=== PATIENT | male | born 1980 | race Caucasian/White ===

== ENCOUNTER → 2016-09-15 | Outpatient (REF) | payer OTHER ==
[2016-09-15 12:18] LABS: ALBUMIN/GLOBULIN RATIO 1.25 (1.00-1.93); ALKALINE PHOSPHATASE 85 U/L (45-117); ALT/SGPT 18 U/L (12-78); ANION GAP 9 MEQ/L (8-16); AST/SGOT 11 U/L (15-37); BILIRUBIN,TOTAL 0.6 MG/DL (0.2-1.0); BLOOD UREA NITROGEN 14 MG/DL (7-18); CARBON DIOXIDE LEVEL 29 MEQ/L (21-32); CHLORIDE LEVEL 105 MEQ/L (98-107); CHOLESTEROL LEVEL 183 MG/DL (<200); CREATININE FOR GFR 0.98 MG/DL (0.70-1.30); FREE T4 0.92 NG/DL (0.76-1.46); GLOMERULAR FILTRATION RATE > 60.0 (>60); GLUCOSE, FASTING 92 MG/DL (70-105); POTASSIUM SERUM 4.2 MEQ/L (3.5-5.1); SODIUM LEVEL 143 MEQ/L (136-145); TOTAL PROTEIN 7.2 GM/DL (6.4-8.2); TRIGLYCERIDES LEVEL 70 MG/DL (<150)
== END ==
LOC: M LABDRAW1 11:36
PROVIDERS: ATTEND Emergency Medicine
DX: E03.9 Hypothyroidism, unspecified (principal); E55.9 Vitamin D deficiency, unspecified

== ENCOUNTER → 2017-09-06 | Outpatient (REF) | payer OTHER ==
[2017-09-06 13:29] LABS: TOTAL 25(OH) VITAMIN D 28.2 NG/ML (30.0-100.0)
[2017-09-06 13:36] LABS: ALBUMIN 4.1 GM/DL (3.2-5.2); ALBUMIN/GLOBULIN RATIO 1.14 (1.00-1.93); ALKALINE PHOSPHATASE 93 U/L (45-117); ALT/SGPT 18 U/L (12-78); ANION GAP 8 MEQ/L (8-16); AST/SGOT 15 U/L (7-37); BILIRUBIN,TOTAL 0.9 MG/DL (0.2-1.0); BLOOD UREA NITROGEN 14 MG/DL (7-18); CALCIUM LEVEL 8.8 MG/DL (8.5-10.1); CARBON DIOXIDE LEVEL 29 MEQ/L (21-32); CHLORIDE LEVEL 104 MEQ/L (98-107); CHOLESTEROL LEVEL 216 MG/DL (<200); CHOLESTEROL RISK RATIO 4.595 (<5); CREATININE FOR GFR 0.95 MG/DL (0.70-1.30); FREE T4 0.92 NG/DL (0.76-1.46); GLOMERULAR FILTRATION RATE > 60.0 (>60); GLUCOSE, FASTING 89 MG/DL (70-100); HDL CHOLESTEROL 47 MG/DL (>40); LDL CHOLESTEROL 152.6 MG/DL (<100); NON-HDL-C 169 MG/DL; POTASSIUM SERUM 4.1 MEQ/L (3.5-5.1); SODIUM LEVEL 141 MEQ/L (136-145); TOTAL PROTEIN 7.7 GM/DL (6.4-8.2); TRIGLYCERIDES LEVEL 82 MG/DL (<150)
== END ==
LOC: M LABDRAW1 12:17
DX: E03.9 Hypothyroidism, unspecified (principal); E55.9 Vitamin D deficiency, unspecified
CPT/HCPCS: 84443

== ENCOUNTER → 2018-09-10 | Outpatient (REF) | payer OTHER ==
[2018-09-10 11:18] LABS: ALBUMIN 4.1 GM/DL (3.2-5.2); ALT/SGPT 21 U/L (12-78); BILIRUBIN,TOTAL 0.5 MG/DL (0.2-1.0); BLOOD UREA NITROGEN 15 MG/DL (7-18); CALCIUM LEVEL 8.5 MG/DL (8.5-10.1); CARBON DIOXIDE LEVEL 33 MEQ/L (21-32); CHLORIDE LEVEL 102 MEQ/L (98-107); CHOLESTEROL LEVEL 217 MG/DL (<200); CHOLESTEROL RISK RATIO 4.822 (<5); CREATININE FOR GFR 0.91 MG/DL (0.70-1.30); GLOMERULAR FILTRATION RATE > 60.0 (>60); GLUCOSE, FASTING 96 MG/DL (70-100); HDL CHOLESTEROL 45 MG/DL (>40); LDL CHOLESTEROL 157 MG/DL (<100); NON-HDL-C 172 MG/DL; POTASSIUM SERUM 4.1 MEQ/L (3.5-5.1); SODIUM LEVEL 139 MEQ/L (136-145); TOTAL PROTEIN 7.5 GM/DL (6.4-8.2); TRIGLYCERIDES LEVEL 76 MG/DL (<150)
[2018-09-10 11:24] LABS: TOTAL 25(OH) VITAMIN D 41.3 NG/ML (30.0-100.0)
== END ==
LOC: M LABDRAW1 10:27
PROVIDERS: ATTEND Physician Assistant
DX: E55.9 Vitamin D deficiency, unspecified (principal); E78.2 Mixed hyperlipidemia; E03.9 Hypothyroidism, unspecified

== ENCOUNTER → 2019-09-08 | Outpatient (REF) | payer OTHER ==
[2019-09-08 10:58] LABS: ALT/SGPT 19 U/L (12-78); BILIRUBIN,TOTAL 0.8 MG/DL (0.2-1.0); BLOOD UREA NITROGEN 11 MG/DL (7-18); CARBON DIOXIDE LEVEL 29 MEQ/L (21-32); CHLORIDE LEVEL 103 MEQ/L (98-107); CHOLESTEROL LEVEL 226 MG/DL (<200); CHOLESTEROL RISK RATIO 4.708 (<5); CREATININE FOR GFR 1.05 MG/DL (0.70-1.30); FREE T4 0.99 NG/DL (0.76-1.46); GLOMERULAR FILTRATION RATE > 60.0 (>60); GLUCOSE, FASTING 87 MG/DL (70-100); HDL CHOLESTEROL 48 MG/DL (>40); LDL CHOLESTEROL 164 MG/DL (<100); NON-HDL-C 178 MG/DL; POTASSIUM SERUM 3.8 MEQ/L (3.5-5.1); SODIUM LEVEL 138 MEQ/L (136-145); TOTAL PROTEIN 7.7 GM/DL (6.4-8.2); TRIGLYCERIDES LEVEL 71 MG/DL (<150)
== END ==
LOC: M LABDRAW1 08:15
PROVIDERS: ATTEND Physician Assistant
DX: E03.9 Hypothyroidism, unspecified (principal); E78.2 Mixed hyperlipidemia

== ENCOUNTER → 2020-09-16 | Outpatient (REF) | payer OTHER ==
[2020-09-16 13:47] LABS: ALBUMIN 4.1 GM/DL (3.2-5.2); ALT/SGPT 22 U/L (12-78); BLOOD UREA NITROGEN 11 MG/DL (7-18); CALCIUM LEVEL 9.6 MG/DL (8.5-10.1); CARBON DIOXIDE LEVEL 30 MEQ/L (21-32); CHLORIDE LEVEL 103 MEQ/L (98-107); CHOLESTEROL LEVEL 221 MG/DL (<200); CHOLESTEROL RISK RATIO 4.604 (<5); FREE T4 0.95 NG/DL (0.76-1.46); GLOMERULAR FILTRATION RATE > 60.0 (>60); GLUCOSE, FASTING 85 MG/DL (70-100); HDL CHOLESTEROL 48 MG/DL (>40); LDL CHOLESTEROL 157 MG/DL (<100); NON-HDL-C 173 MG/DL; POTASSIUM SERUM 3.9 MEQ/L (3.5-5.1); SODIUM LEVEL 140 MEQ/L (136-145); TOTAL PROTEIN 7.8 GM/DL (6.4-8.2); TRIGLYCERIDES LEVEL 79 MG/DL (<150)
== END ==
LOC: M LABDRWAD 12:30
PROVIDERS: ATTEND Physician Assistant
DX: E55.9 Vitamin D deficiency, unspecified (principal); E03.9 Hypothyroidism, unspecified; E78.2 Mixed hyperlipidemia

== ENCOUNTER → 2021-01-14 | Outpatient (CLI) | payer OTHER ==
[2021-01-14 16:40] LABS: BLOOD UREA NITROGEN 10 MG/DL (7-18); CALCIUM LEVEL 9.4 MG/DL (8.5-10.1); CARBON DIOXIDE LEVEL 28 MEQ/L (21-32); CHLORIDE LEVEL 105 MEQ/L (98-107); CREATININE FOR GFR 1.02 MG/DL (0.70-1.30); GLOMERULAR FILTRATION RATE > 60.0 (>60); GLUCOSE, FASTING 84 MG/DL (70-100); POTASSIUM SERUM 3.9 MEQ/L (3.5-5.1); RHEUMATOID FACTOR QUANT < 10.0 IU/ML (<15.0); SODIUM LEVEL 139 MEQ/L (136-145)
[2021-01-14 16:42] LABS: TOTAL 25(OH) VITAMIN D 34.9 NG/ML (30.0-100.0)
[2021-01-17 16:28] LABS: ANTINUCLEAR ANTIBODIES DIRECT Negative (Negative); Lyme Disease IgG/IgM Antibodie <0.91 ISR (0.00-0.90); Lyme Disease IgM Ab Quantitati <0.80 index (0.00-0.79); SJOGREN'S ANTI SS-A <0.2 AI (0.0-0.9); SJOGREN'S ANTI SS-B <0.2 AI (0.0-0.9)
== END ==
LOC: M PLALAB 12:25
PROVIDERS: ATTEND Family Medicine
DX: M12.9 Arthropathy, unspecified (principal); E55.9 Vitamin D deficiency, unspecified; E03.9 Hypothyroidism, unspecified

== ENCOUNTER 2021-05-18 12:06 | Emergency (ER) | payer OTHER ==
[~2021-05-18] VITALS: Ht 185.4 cm; Wt 87.0 kg
[2021-05-18] MEDS ORDERED: LEVO25TA5 PO (12:20)
[2021-05-18] MEDS ORDERED: FAMO20TA5 PO (12:20)
--- NOTE | 2021-05-18 12:43 | REP ---
INDICATION: injury COMPARISON: None. TECHNIQUE: Three views right shoulder. FINDINGS: There is no evidence of acute fracture, dislocation, or intrinsic bone disease. IMPRESSION: No fracture or dislocation. <Electronically signed by Chris Paige > 05/18/21 [id number]
--- OUTSIDE RECORDS SUMMARY | 2021-05-18 14:05 | CCD ---
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 Name Role Phone Gavi Christianson PA Unavailable Unavailable ChristiansonGavi baker PA Unavailable Unavailable Gavi Christianson PA Unavailable Unavailable ChristiansonGavi PA Unavailable Unavailable ChristiansonGavi PA Unavailable Unavailable ChristiansonGavi PA Unavailable Unavailable ChristiansonGavi PA Unavailable Unavailable ChristiansonGavin PA Unavailable Unavailable ChristiansonGavilyn PA Unavailable Unavailable ChristiansonGavilyn PA Unavailable Unavailable Gilma Wilder MD Unavailable Unavailable Gilma Wilder MD Unavailable Unavailable Gilma Wilder MD Unavailable Unavailable Gilma Wilder MD Unavailable Unavailable Gilma Wilder MD Unavailable Unavailable Gilma Wilder MD Unavailable Unavailable Gilma Wilder MD Unavailable Unavailable Gilma Wilder MD Unavailable Unavailable Gilma Wilder MD Unavailable Unavailable Gilma Wilder MD Unavailable Unavailable Gilma Wilder MD Unavailable Unavailable Gilma Wilder MD Unavailable Unavailable Gilma Wilder MD Unavailable Unavailable Gilma Wilder MD Unavailable Unavailable Gilma Wilder MD Unavailable Unavailable Gilma Wilder MD Unavailable Unavailable Gilma Wilder MD Unavailable Unavailable Gilma Wilder MD Unavailable Unavailable Gilma Wilder MD Unavailable Unavailable Gilma Wilder MD Unavailable Unavailable Gilma Wilder MD Unavailable Unavailable Gilma Wilder MD Unavailable Unavailable Meño, Gilma Swain MD Unavailable Unavailable Meño, Gilma Swain MD Unavailable Unavailable Meño, A Brynn SALTER Unavailable Unavailable Meño, A Brynn SALTER Unavailable Unavailable Meño, A Brynn SALTER Unavailable Unavailable Meño, A Brynn SALTER Unavailable Unavailable Meño, A Brynn SALTER Unavailable Unavailable Meño, A Brynn SALTER Unavailable Unavailable Meño, A Brynn SALTER Unavailable Unavailable Meño, A Brynn SALTER Unavailable Unavailable Meño, A Brynn SALTER Unavailable Unavailable Meño, A Brynn SALTER Unavailable Unavailable Meño, A Brynn SALTER Unavailable Unavailable Meño, A Brynn SALTER Unavailable Unavailable Meño, A Brynn SALTER Unavailable Unavailable Meño, A Brynn SALTER Unavailable Unavailable Meño, A Brynn SALTER Unavailable Unavailable Meño, A Brynn SALTER Unavailable Unavailable Meño, A Brynn SALTER Unavailable Unavailable Meño, A Brynn SALTER Unavailable Unavailable Meño, A Brynn SALTER Unavailable Unavailable Meño, A Brynn SALTER Unavailable Unavailable Meño, A Brynn SALTER Unavailable Unavailable Meño, A Brynn SALTER Unavailable Unavailable Meño, A Brynn SALTER Unavailable Unavailable Meño, A Brynn SALTER Unavailable Unavailable Meño, A Brynn SALTER Unavailable Unavailable Meño, A Brynn SALTER Unavailable Unavailable Meño, A Brynn SALTER Unavailable Unavailable Meño, A Brynn SALTER Unavailable Unavailable Meño, A Brynn SALTER Unavailable Unavailable Meño, A Brynn SLATER Unavailable Unavailable Meño, A Brynn SALTER Unavailable Unavailable Meño, A Brynn SALTER Unavailable Unavailable Meño, A Brynn SALTER Unavailable Unavailable Meño, A Brynn SALTER Unavailable Unavailable Meño, A Brynn SALTER Unavailable Unavailable Meño, A Brynn SALTER Unavailable Unavailable Meño, A Brynn SALTER Unavailable Unavailable Meño, A Brynn SALTER Unavailable Unavailable Meño, A Brynn SALTER Unavailable Unavailable Meño, A Brynn SALTER Unavailable Unavailable Meño, A Brynn SALTER Unavailable Unavailable Meño, A Brynn SALTER Unavailable Unavailable Meño, A Brynn SALTER Unavailable Unavailable Meño, A Brynn SALTER Unavailable Unavailable Meño, Gilma Swain MD Unavailable Unavailable Meño, Gilma Swain MD Unavailable Unavailable Meño, A Brynn SALTER Unavailable Unavailable Meño, A Brynn SALTER Unavailable Unavailable Meño, A Brynn SALTER Unavailable Unavailable Meño, A Brynn SALTER Unavailable Unavailable Meño, A Brynn SALTER Unavailable Unavailable Meño, A Brynn SALTER Unavailable Unavailable Meño, A Brynn SALTER Unavailable Unavailable Meño, A Brynn SALTER Unavailable Unavailable Meño, A Brynn SALTER Unavailable Unavailable Meño, A Brynn SALTER Unavailable Unavailable Meño, A Brynn SALTER Unavailable Unavailable Meño, A Brynn SALTER Unavailable Unavailable Pleskach, Kirsty FOOD SERVICE CLERK Unavailable Unavailable Pleskach, Kirsty FOOD SERVICE CLERK Unavailable Unavailable Pleskach, Kirsty FOOD SERVICE CLERK Unavailable Unavailable Pleskach, Kirsty FOOD SERVICE CLERK Unavailable Unavailable Pleskach, Kirsty FOOD SERVICE CLERK Unavailable Unavailable Pleskach, Kirsty FOOD SERVICE CLERK Unavailable Unavailable Pleskach, Kirsty FOOD SERVICE CLERK Unavailable Unavailable Pleskach, Kirsty FOOD SERVICE CLERK Unavailable Unavailable Pleskach, Kirsty FOOD SERVICE CLERK Unavailable Unavailable Pleskach, Kirsty FOOD SERVICE CLERK Unavailable Unavailable Pleskach, Kirsty FOOD SERVICE CLERK Unavailable Unavailable Pleskach, Kirsty FOOD SERVICE CLERK Unavailable Unavailable Pleskach, Kirsty FOOD SERVICE CLERK Unavailable Unavailable Pleskach, Kirsty FOOD SERVICE CLERK Unavailable Unavailable Pleskach, Kirsty FOOD SERVICE CLERK Unavailable Unavailable Pleskach, Kirsty FOOD SERVICE CLERK Unavailable Unavailable Pleskach, Kirsty FOOD SERVICE CLERK Unavailable Unavailable Pleskach, Kirsty FOOD SERVICE CLERK Unavailable Unavailable Pleskach, Kirsty FOOD SERVICE CLERK Unavailable Unavailable Pleskach, Kirsty FOOD SERVICE CLERK Unavailable Unavailable Pleskach, Kirsty FOOD SERVICE CLERK Unavailable Unavailable Pleskach, Kirsty FOOD SERVICE CLERK Unavailable Unavailable Pleskach, Kirsty FOOD SERVICE CLERK Unavailable Unavailable Pleskach, Kirsty FOOD SERVICE CLERK Unavailable Unavailable Pleskach, Kirsty FOOD SERVICE CLERK Unavailable Unavailable Pleskach, Kirsty FOOD SERVICE CLERK Unavailable Unavailable Pleskach, Kirsty FOOD SERVICE CLERK Unavailable Unavailable Pleskach, Kirsty FOOD SERVICE CLERK Unavailable Unavailable Pleskach, Kirsty FOOD SERVICE CLERK Unavailable Unavailable Pleskach, Kirsty FOOD SERVICE CLERK Unavailable Unavailable Pleskach, Kirsty FOOD SERVICE CLERK Unavailable Unavailable Pleskach, Ikrsty FOOD SERVICE CLERK Unavailable Unavailable Pleskach, Kirsty FOOD SERVICE CLERK Unavailable Unavailable Pleskach, Kirsty FOOD SERVICE CLERK Unavailable Unavailable Pleskach, Kirsty FOOD SERVICE CLERK Unavailable Unavailable Pleskach, Kirsty FOOD SERVICE CLERK Unavailable Unavailable Pleskach, Kirsty FOOD SERVICE CLERK Unavailable Unavailable Pleskach, Kirsty FOOD SERVICE CLERK Unavailable Unavailable Pleskach, Kirsty FOOD SERVICE CLERK Unavailable Unavailable Pleskach, Kirsty FOOD SERVICE CLERK Unavailable Unavailable Pleskach, Kirsty FOOD SERVICE CLERK Unavailable Unavailable Pleskach, Kirsty FOOD SERVICE CLERK Unavailable Unavailable Re-disclosure Warning The records that you are about to access may contain information from federally-assisted alcohol or drug abuse programs. If such information is present, then the following federally mandated warning applies: This information has been disclosed to you from records protected by federal confidentiality rules (42 CFR part 2). The federal rules prohibit you from making any further disclosure of this information unless further disclosure is expressly permitted by the written consent of the person to whom it pertains or as otherwise permitted by 42 CFR part 2. A general authorization for the release of medical or other information is NOT sufficient for this purpose. The Federal rules restrict any use of the information to criminally investigate or prosecute any alcohol or drug abuse patient.The records that you are about to access may contain highly sensitive health information, the redisclosure of which is protected by Article 27-F of the [facility] Public Health law. If you continue you may have access to information: Regarding HIV / AIDS; Provided by facilities licensed or operated by the [facility] Office of Mental Health; or Provided by the [facility] Office for People With Developmental Disabilities. If such information is present, then the following [facility] mandated warning applies: This information has been disclosed to you from confidential records which are protected by state law. State law prohibits you from making any further disclosure of this information without the specific written consent of the person to whom it pertains, or as otherwise permitted by law. Any unauthorized further disclosure in violation of state law may result in a fine or halfway sentence or both. A general authorization for the release of medical or other information is NOT sufficient authorization for further disc losure. Family History Family Member Name Family Member Gender Family Member Status Date o f Status Description Data Source(s) Unknown Unknown Problem [facility] ([facility] Unknown Unknown Problem [facility] Encounters Encounter Providers Location Date Indications Data Source(s ) Outpatient Attender: Brynn Wilder MD Main Office 01/19/2021 08:45:0 0 AM EDT [facility] ([facility] Outpatient Attender: Brynn Wilder MD Main Office 01/14/2021 11:45:0 0 AM EDT [facility] ([facility] Outpatient Attender: Kirsty Leonardo [facility] Main Office 09/23/2020 0 2:45:00 PM EST [facility] ([facility] Outpatient Attender: Rakel wilcox 05/31/2020 07:30:00 AM EST [facility] ([facility] Immunizations Vaccine Date Status Description Data Source(s) COVID-19 VACCINE [place] 12/01/2020 12:00:00 AM EDT completed [facility] Vaccine Series Complete: YESThis Data wa s Submitted to [facility] Via [facility]. Medications Medication Brand Name Start Date Product Form Dose Route Admi nistrative Instructions Pharmacy Instructions Status Indications Reaction Description Data Source(s) Famotidine 20 MG Oral Tablet Famotidine 09/23/2020 12:00:00 AM EST ORAL active [facility] ([facility] Insurance Providers Payer name Policy type / Coverage type Policy ID Covered democrat ID Covered democrat's relationship to page Policy Page Plan Information [employer]K [employer] [id number] SP [id number] R [facility] [id number] SP [id number] [facility] Commercial [id number] Self [id number] [employer] [id number] SP [id number] [employer] Commercial [id number] Self [employer] Commercial [id number] Self [employer] [place] PPO [id number] FA [id number] [employer] [id number] SP [id number] Problems, Conditions, and Diagnoses Code Display Name Description Problem Type Effective Dates Data Source(s) F43.23 Adjustment disorder with mixed emotional features Adjustment disorder with mixed emotional features Problem 01/19/2021 12:00:00 AM EDT [facility] ([facility] E78.2 Mixed hyperlipidemia Mixed hyperlipidemia Problem 01/19/2021 12:00:00 AM EDT [facility] ([facility] E03.9 Hypothyroidism Hypothyroidism Problem 01/19/2021 12:00: 00 AM EDT [facility] ([facility] Surgeries/Procedures Procedure Description Date Indications Data Source(s) OFFICE OUTPATIENT VISIT 15 MINUTES 01/19/2021 12:00:00 AM EDT [facility] ([facility] OFFICE OUTPATIENT VISIT 25 MINUTES 01/14/2021 12:00:00 AM EDT [facility] ([facility] OFFICE OUTPATIENT VISIT 15 MINUTES 09/23/2020 12:00:00 AM EST [facility] ([facility] PERIODIC PREVENTIVE MED EST PATIENT 18-39 YRS 09/23/19 12:00:00 AM EST [facility] ([facility] Results ID Date Data Source [id number] 01/14/2021 12:43:00 PM EDT [facility] ([facility] Name Value Range Interpretation Code Description Data Debby rce(s) Supporting Document(s) Calcidiol [Mass/volume] in Serum or Plasma 34.9 ng/mL 30.0-100.0 [facility] ([facility] Thyrotropin [Units/volume] in Serum or Plasma 1.820 uIU/ML 0.358-3.74 0 [facility] ([facility] ID Date Data Source [id number] 01/14/2021 12:43:00 PM EDT [facility] ([facility] Name Value Range Interpretation Code Description Data Debby rce(s) Supporting Document(s) Rheumatoid factor [Units/volume] in Serum or Plasma Laboratory test result [facility] ([facility] ID Date Data Source [id number] 01/14/2021 12:43:00 PM EDT [facility] ([facility] Name Value Range Interpretation Code Description Data Debby rce(s) Supporting Document(s) Lyme Disease IgG/IgM Antibodie Laboratory test result 0.00-0.90 [facility] ([facility] <content>Negative <0.91</content >
<content>Equivocal 0.91 - 1.09</content>
<content>Positive >1.09</content>
<content></content> Lyme Disease IgM Ab Quantitati Laboratory test result 0.00-0.79 [facility] ([facility] <content>Negative <0.80</content >
<content>Equivocal 0.80 - 1.19</content>
<content>Positive >1.19</content>
<content>.</content>
<content>IgM levels may peak at 3-6 weeks post infection, then</content>
<content>gradually decline.</content>
<content></content> ID Date Data Source [id number] 01/14/2021 12:43:00 PM EDT [facility] ([facility] Name Value Range Interpretation Code Description Data Debby rce(s) Supporting Document(s) Erythrocyte sedimentation rate by 2H Westergren method 35 mm/hr 0-1 5 [facility] ID Date Data Source [id number] 01/14/2021 12:43:00 PM EDT [facility] ([facility] Name Value Range Interpretation Code Description Data Debby e(s) Supporting Document(s) Blood Urea Nitrogen 10 mg/dL 7-18 [facility] ([facility] Glucose, Fasting 84 mg/dL 70-100 [facility] ([facility] Glomerular Filtration Rate Laboratory test result [facility] ([facility] <content>Units are mL/min/1.73 m2</content>
<content></content>
<content>Chronic Kidney Disease Staging per NKF:</content>
<content></content>
<content>Stage I & II GFR >=60 Normal to Mildly Decreased</content>
<content>Stage III GFR 30- 59 Moderately Decreased</content>
<content>Stage IV GFR 15-29 Severely Decreased</content>
<content>Stage V GFR <15 Very Little GFR Left</content>
<content>ESRD GFR <15 on AIRPLANE PILOT HELPER</content>
<content></content> Creatinine For GFR 1.02 mg/dL 0.70-1.30 [facility] ([facility] Sodium Level 139 meq/L 136-145 [facility] Chloride Level 105 meq/L 98-107 [facility] Potassium Serum 3.9 meq/L 3.5-5.1 [facility] Anion Gap 6 meq/L 8-16 [facility] Carbon Dioxide Level 28 meq/L 21-32 [facility] ([facility] Calcium Level 9.4 mg/dL 8.5-10.1 [facility] ID Date Data Source [id number] 01/14/2021 12:43:00 PM EDT [facility] ([facility] Name Value Range Interpretation Code Description Data Debby rce(s) Supporting Document(s) Antinuclear Antibodies Direct Laboratory test result [facility] ([facility] Performed at: - [address] [id number] Firearms Sales Associate: Matilda Moura MD, Phone: [phone] S[facility]ren's Anti SS-A Laboratory test result 0.0-0.9 [facility] ([facility] Sjogren's Anti SS-B Laboratory test result 0.0-0.9 [facility] Procedure Social History Code Duration Value Status Description Data Source(s ) Smoking 01/19/2021 12:00:00 AM EDT - 07/30/2011 12:00:00 AM EST Patient is a former smoker completed Patient is a former smoker [facility] Vital Signs ID Date Data Source UNK Name Value Range Interpretation Code Description Data Source(s) Body mass index (BMI) [Ratio] 24.3 kg/m2 24.3 k g/m2 [facility] [place] body weight 184 [lb_av] 184 [lb_av] [facility] T ([facility] Systolic blood pressure 128 mm[Hg] 128 mm[Hg] M EDENT ([facility] Diastolic blood pressure 82 mm[Hg] 82 mm[Hg] [facility] Heart rate 81 /min 81 /min [facility] Body temperature 97.8 [degF] 97.8 [degF] [facility] Respiratory rate 16 /min 16 /min [facility] ( [facility] Body height 73.0 [in_i] 73.0 [in_i] [facility] ([facility] 6'1" Body weight 184.25 [lb_av] 184.25 [lb_av] [facility] T ([facility] Diastolic blood pressure 88 mm[Hg] 88 mm[Hg] [facility] Body weight 180.12 [lb_av] 180.12 [lb_av] [facility] T ([facility] [place] body weight 184 [lb_av] 184 [lb_av] [facility] T ([facility] Systolic blood pressure 127 mm[Hg] 127 mm[Hg] M [facility] ([facility] Heart rate 96 /min 96 /min [facility] Body temperature 97.9 [degF] 97.9 [degF] [facility] Respiratory rate 16 /min 16 /min [facility] ( [facility] Body height 73.0 [in_i] 73.0 [in_i] [facility] ([facility] 6'1" Body mass index (BMI) [Ratio] 23.8 kg/m2 23.8 k g/m2 [facility] Body weight 194.00 [lb_av] 194.00 [lb_av] [facility] T ([facility] Respiratory rate 18 /min 18 /min [facility] ( [facility] Body mass index (BMI) [Ratio] 25.6 kg/m2 25.6 k g/m2 [facility] Systolic blood pressure 131 mm[Hg] 131 mm[Hg] M [facility] ([facility] Diastolic blood pressure 85 mm[Hg] 85 mm[Hg] [facility] Heart rate 71 /min 71 /min [facility] Body temperature 97.2 [degF] 97.2 [degF] [facility] Body height 73.0 [in_i] 73.0 [in_i] [facility] ([facility] 6'1" [place] body weight 184 [lb_av] 184 [lb_av] [facility] T ([facility] Oxygen saturation in Arterial blood by Pulse oximetry 98 % 98 % [facility] Oxygen saturation in Arterial blood by Pulse oximetry 99 % 99 % [facility] ([facility], [facility]) Body mass index (BMI) [Ratio] 23.5 kg/m2 23.5 k g/m2 [facility] ([facility], [facility]) Systolic blood pressure 130 mm[Hg] 130 mm[Hg] [facility] ([facility], [facility]) Diastolic blood pressure 90 mm[Hg] 90 mm[Hg] [facility] ([facility], [facility]) Heart rate 90 /min 90 /min [facility] ([facility], [facility]) Respiratory rate 16 /min 16 /min [facility] ( [facility], [facility]) Body temperature 98.6 [degF] 98.6 [degF] [facility] ([facility], [facility]) Body weight 178.00 [lb_av] 178.00 [lb_av] [facility] ([facility], [facility]) Body height 73 [in_i] 73 [in_i] [facility] ([facility], [facility]) 6'1"
[2021-05-18] MEDS ORDERED: NAPR-837 PO (14:10)
[2021-05-18 14:21] VITALS: BP 135/93
== END 2021-05-18 14:26 | disposition home or self-care (01) ==
LOC: M ED 12:06
DX: S49.91XA Unspecified injury of right shoulder and upper arm, initial encounter (principal); X58.XXXA Exposure to other specified factors, initial encounter; Y92.89 Other specified places as the place of occurrence of the external cause; Y93.89 Activity, other specified; Y99.0 Civilian activity done for income or pay; K21.9 Gastro-esophageal reflux disease without esophagitis; E03.9 Hypothyroidism, unspecified

== ENCOUNTER → 2021-06-20 | Outpatient (CLI) | payer OTHER ==
[~2021-06-20] MED LIST: FAMO20TA5 PO; ISOVUE-300 61% 50ML VIAL As Ordered ONE; LEVO25TA5 PO; LIDOCAINE 1% MDV 20ML VIAL As Ordered ONE; NAPR-837 PO; PROHANCE 279.3MG/ML 5ML VIAL As Ordered ONE
--- NOTE | 2021-06-20 10:29 | REP ---
INDICATION: PAIN IN RT SHOULDER R/O LABRUM TEAR. COMPARISON: None. TECHNIQUE: Pre and post contrast 3T MRI of the right shoulder with MRI arthrogram was performed utilizing various sequences. The glenohumeral injection was performed by samuel CALDERON. FINDINGS: There are pre injection portion examination shows mild to moderate hypertrophic degenerative change involving the acromioclavicular joint. The acromion process is type 2. There is no evidence of coracohumeral or coracoacromial ligamentous thickening. There is patchy and linear T2 hyper signal seen throughout the supraspinatus tendon without evidence of musculotendinous retraction or significant muscular atrophy. Patchy T2 hyper signal is seen throughout the subscapularis and infraspinatus tendons. The biceps tendon resides within the bicipital groove. There is no glenohumeral joint effusion. There is a large amount of fluid in the subcoracoid recess. The post injection portion examination shows linear hyper signal in the superior labrum and particularly throughout the posterior labrum. None of the injected fluid has migrated superior to the supraspinatus tendon. The glenohumeral ligaments are intact. There is mild T2 hyper signal in the region of the biceps labral complex. IMPRESSION: 1. There is supraspinatus, subscapularis, infraspinatus tendinitis/tendinosis. 2. There is evidence of a superior and posterior labral tear. There is a possible capacious sublabral foramen. A SLAP tear cannot be completely ruled out. 3. There is evidence of a slight tear of the biceps labral complex. 4. Other findings as described above. <Electronically signed by Torey Thmoas > 06/20/21 [id number]
--- NOTE | 2021-06-20 16:44 | REP ---
INDICATION: PAIN IN RT SHOULDER R/O LABRUM TEAR COMPARISON: None. TECHNIQUE: The procedure was performed under the direct supervision of Dr. Paige. The benefits and risks including but not limited to pain, infection, bleeding and anaphylaxis were explained to the patient and informed consent was obtained. The right glenohumeral joint space was localized using fluoroscopic guidance. The skin was prepped and draped in a sterile fashion. 1% lidocaine was used as a local anesthetic. Using fluoroscopic guidance a 22 gauge spinal needle was inserted and advanced into the joint. 0.5 ml of Isovue-300 was injected to verify placement. 11 ml of a solution containing 20 ml of sterile saline and 0.15 ml of ProHance was injected into the joint. The needle was removed and the patient was taken to MRI for postprocedural imaging. The patient tolerated the procedure well and there were no immediate complications. Less than 6 seconds of fluoro time was utilized for this procedure. FINDINGS: None IMPRESSION: Fluoro guidance for right shoulder MRI arthrogram injection. <Electronically signed by Shamir Lawrence > 06/20/21 1619 <Electronically signed by Chris Paige > 06/20/21 1640
== END ==
LOC: M RADPRO 06:52
PROVIDERS: ATTEND Physician Assistant Surgical
DX: R93.7 Abnormal findings on diagnostic imaging of other parts of musculoskeletal system (principal); M25.511 Pain in right shoulder
CPT/HCPCS: 23350; 73223; 77002; A9576; Q9967

== ENCOUNTER → 2021-09-13 | Outpatient (REF) | payer OTHER ==
[~2021-09-13] MED LIST changes: -ISOVUE-300 61% 50ML VIAL As Ordered ONE; -LIDOCAINE 1% MDV 20ML VIAL As Ordered ONE; -PROHANCE 279.3MG/ML 5ML VIAL As Ordered ONE
[2021-09-13 13:09] LABS: ALBUMIN 4.2 GM/DL (3.2-5.2); ALT/SGPT 25 U/L (12-78); BLOOD UREA NITROGEN 10 MG/DL (7-18); CALCIUM LEVEL 9.4 MG/DL (8.5-10.1); CARBON DIOXIDE LEVEL 29 MEQ/L (21-32); CHLORIDE LEVEL 105 MEQ/L (98-107); CHOLESTEROL LEVEL 232 MG/DL (<200); CHOLESTEROL RISK RATIO 4.734 (<5); CREATININE FOR GFR 1.06 MG/DL (0.70-1.30); FREE T4 1.07 NG/DL (0.76-1.46); GLOMERULAR FILTRATION RATE > 60.0 (>60); GLUCOSE, FASTING 93 MG/DL (70-100); HDL CHOLESTEROL 49 MG/DL (>40); LDL CHOLESTEROL 165 MG/DL (<100); NON-HDL-C 183 MG/DL; SODIUM LEVEL 140 MEQ/L (136-145); TOTAL PROTEIN 7.8 GM/DL (6.4-8.2); TRIGLYCERIDES LEVEL 91 MG/DL (<150)
[2021-09-13 13:12] LABS: TOTAL 25(OH) VITAMIN D 35.3 NG/ML (30.0-100.0)
== END ==
LOC: M LABDRWAD 12:19
PROVIDERS: ATTEND Nurse Practitioner Family
DX: E03.9 Hypothyroidism, unspecified (principal); E55.9 Vitamin D deficiency, unspecified; E78.2 Mixed hyperlipidemia

== ENCOUNTER → 2022-09-08 | Outpatient (CLI) | payer OTHER ==
[2022-09-08 11:49] LABS: ALT/SGPT 20 U/L (7.0-40); AST/SGOT < 8 U/L (<34); BLOOD UREA NITROGEN 14 MG/DL (9-23); CALCIUM LEVEL 9.5 MG/DL (8.5-10.1); CARBON DIOXIDE LEVEL 28 MMOL/L (20-31); CHLORIDE LEVEL 102 MMOL/L (98-107); CREATININE FOR GFR 0.96 MG/DL (0.70-1.30); GLOMERULAR FILTRATION RATE > 60.0 (>60); GLUCOSE, FASTING 90 MG/DL (60-100); POTASSIUM SERUM 4.2 MMOL/L (3.5-5.1); SODIUM LEVEL 138 MMOL/L (136-145); THYROID STIMULATING HORMONE 2.417 uIU/ML (0.55-4.78); TOTAL 25(OH) VITAMIN D 33.3 NG/ML (20.0-100.0)
[2022-09-08 11:50] LABS: ALBUMIN 4.5 G/DL (3.2-5.2); ALKALINE PHOSPHATASE 90 U/L (46-116); BILIRUBIN,TOTAL 0.9 MG/DL (0.3-1.2); CHOLESTEROL LEVEL 209 MG/DL (<200); CHOLESTEROL RISK RATIO 4.73 (<5); HDL CHOLESTEROL 44.1 MG/DL (>40); LDL CHOLESTEROL 148.9 MG/DL (<100); NON-HDL-C 165 MG/DL; TOTAL PROTEIN 7.7 G/DL (5.7-8.2); TRIGLYCERIDES LEVEL 80 MG/DL (<150)
[2022-09-08 11:52] LABS: FREE T4 1.25 NG/DL (0.89-1.76)
== END ==
LOC: M WUC 09:09
PROVIDERS: ATTEND Nurse Practitioner Family
DX: E78.2 Mixed hyperlipidemia (principal); E03.9 Hypothyroidism, unspecified; E55.9 Vitamin D deficiency, unspecified

== ENCOUNTER 2022-10-31 17:31 | Emergency (ER) | payer OTHER ==
[~2022-10-31] VITALS: Ht 188 cm; Wt 85.3 kg
[2022-10-31] MEDS ORDERED: NOXI1TAB PO (17:44)
[2022-10-31] MEDS ORDERED: LISI5TAB11 (17:44)
[2022-11-01] MEDS ORDERED: RALTEGRAVIR 400 MG TAB (ISENTRESS) PO SCH
[2022-11-01] MEDS ORDERED: TRUVADA 200MG/300MG TABLET PO SCH
[2022-11-01] MEDS ORDERED: HEPATITIS B VACCINE 20MCG/ML 1ML SYRINGE (ADULT DOSE) IM.IMMUN ONE (00:15)
[2022-11-01] MEDS ORDERED: HEPATITIS B IMMUNE GLOBULIN 5ML INJ IM.IMMUN ONE (00:15)
[2022-11-01] MEDS ORDERED: EMTR1TAB16 PO (00:15)
[2022-11-01] MEDS ORDERED: EXPOSURE KIT-ADULT 7 DAY SUPPLY PO ONE (00:15)
[2022-11-01] MEDS ORDERED: RALT40TA PO (00:15)
[2022-11-01] MEDS ORDERED: ONDANSETRON 4MG ORAL DISINTEGRATING TAB PO ONE (00:15)
[2022-11-01] MEDS ORDERED: ONDA4TAB6 PO (00:15)
[2022-11-01 00:54] LABS: BASO % 0.4 % (0.0-1.0); EOS # 0.1 10^3/uL (0.0-0.5); EOS % 0.8 % (0.0-3.0); HEMATOCRIT 45.2 % (42.0-52.0); HEMOGLOBIN 15.5 g/dl (13.5-17.5); LYMPH % 23.9 % (24.0-44.0); MEAN CORPUSCULAR HEMOGLOBIN 29.4 pg (27.0-33.0); MEAN CORPUSCULAR HGB CONC 34.3 g/dl (32.0-36.5); MEAN CORPUSCULAR VOLUME 85.8 fl (80.0-96.0); MONO # 0.8 10^3/uL (0.0-0.8); MONO % 9.5 % (2.0-8.0); NEUTROPHILS # 5.5 10^3/uL (1.5-8.5); PLATELET COUNT, AUTOMATED 207 10^3/uL (150-450); RED BLOOD COUNT 5.27 10^6/uL (4.30-6.10); WHITE BLOOD COUNT 8.4 10^3/uL (4.0-10.0)
[2022-11-01 00:57] VITALS: BP 128/76
[2022-11-01] MEDS ORDERED: TRUVADA 200MG/300MG TABLET PO ONE (01:00)
[2022-11-01] MEDS ORDERED: RALTEGRAVIR 400 MG TAB (ISENTRESS) PO ONE (01:00)
[2022-11-01 01:06] LABS: ALBUMIN 4.3 G/DL (3.2-5.2); ALKALINE PHOSPHATASE 84 U/L (46-116); ALT/SGPT 18 U/L (7.0-40); AST/SGOT 15 U/L (<34); BILIRUBIN,TOTAL 0.9 MG/DL (0.3-1.2); BLOOD UREA NITROGEN 13 MG/DL (9-23); CARBON DIOXIDE LEVEL 29 MMOL/L (20-31); CHLORIDE LEVEL 103 MMOL/L (98-107); CREATININE FOR GFR 0.97 MG/DL (0.70-1.30); GLOMERULAR FILTRATION RATE > 60.0 (>60); GLUCOSE, FASTING 92 MG/DL (60-100); POTASSIUM SERUM 3.6 MMOL/L (3.5-5.1); SODIUM LEVEL 138 MMOL/L (136-145); TOTAL PROTEIN 7.7 G/DL (5.7-8.2)
[2022-11-01 01:08] LABS: HEPATITIS B SURFACE ANTIBODY POSITIVE (POSITIVE)
[2022-11-01 01:20] LABS: HEPATITIS B SURFACE ANTIGEN NEGATIVE (NEGATIVE)
[2022-11-01 01:33] LABS: HIV 1&2 SCREEN CENTAUR NEGATIVE (NEGATIVE)
== END 2022-11-01 01:02 | disposition home or self-care (01) ==
LOC: M ED 17:31
DX: Z77.21 Contact with and (suspected) exposure to potentially hazardous body fluids (principal); Y08.89XA Assault by other specified means, initial encounter; Y99.0 Civilian activity done for income or pay; Z79.899 Other long term (current) drug therapy; Z88.2 Allergy status to sulfonamides

== ENCOUNTER → 2023-10-19 | Outpatient (CLI) | payer OTHER ==
[~2023-10-19] MED LIST changes: +EMTR1TAB16 PO; +LISI5TAB11; +NOXI1TAB PO; +ONDA4TAB6 PO; +RALT40TA PO
[2023-10-19 07:49] LABS: ALKALINE PHOSPHATASE 77 U/L (46-116); ALT/SGPT 34 U/L (7.0-40); AST/SGOT 13 U/L (<34); BLOOD UREA NITROGEN 12 MG/DL (9-23); CALCIUM LEVEL 9.2 MG/DL (8.5-10.1); CARBON DIOXIDE LEVEL 31 MMOL/L (20-31); CHLORIDE LEVEL 103 MMOL/L (98-107); CHOLESTEROL LEVEL 206 MG/DL (<200); CHOLESTEROL RISK RATIO 4.97 (<5); CREATININE FOR GFR 0.97 MG/DL (0.70-1.30); FREE T4 1.25 NG/DL (0.89-1.76); GLOMERULAR FILTRATION RATE > 60.0 (>60); GLUCOSE, FASTING 97 MG/DL (60-100); HDL CHOLESTEROL 41.4 MG/DL (>40); LDL CHOLESTEROL 148.6 MG/DL (<100); NON-HDL-C 164.6 MG/DL; POTASSIUM SERUM 4.2 MMOL/L (3.5-5.1); SODIUM LEVEL 137 MMOL/L (136-145); THYROID STIMULATING HORMONE 3.457 uIU/ML (0.55-4.78); TOTAL 25(OH) VITAMIN D 59.7 NG/ML (20.0-100.0); TOTAL PROTEIN 7.1 G/DL (5.7-8.2); TRIGLYCERIDES LEVEL 80 MG/DL (<150)
== END ==
LOC: M LAB 06:39
PROVIDERS: ATTEND Nurse Practitioner Family
DX: E03.9 Hypothyroidism, unspecified (principal); I10 Essential (primary) hypertension; E78.2 Mixed hyperlipidemia; E55.9 Vitamin D deficiency, unspecified

== ENCOUNTER → 2024-10-17 | Outpatient (CLI) | payer OTHER ==
[~2024-10-17] MED LIST changes: +ONDA-282 PO; -ONDA4TAB6 PO
[2024-10-17 11:30] LABS: THYROID STIMULATING HORMONE 2.797 uIU/ML (0.55-4.78)
[2024-10-17 11:32] LABS: ALBUMIN 3.9 G/DL (3.2-5.2); ALKALINE PHOSPHATASE 88 U/L (40-129); ALT/SGPT 15 U/L (7.0-40); AST/SGOT 14 U/L (<34); BLOOD UREA NITROGEN 13 MG/DL (9-23); CALCIUM LEVEL 9.2 MG/DL (8.5-10.1); CARBON DIOXIDE LEVEL 29 MMOL/L (20-31); CHLORIDE LEVEL 103 MMOL/L (98-107); CHOLESTEROL LEVEL 226 MG/DL (<200); CHOLESTEROL RISK RATIO 4.75 (<5); FREE T4 1.13 NG/DL (0.89-1.76); GLOMERULAR FILTRATION RATE > 60.0 (>60); GLUCOSE, FASTING 95 MG/DL (60-100); HDL CHOLESTEROL 47.5 MG/DL (>40); LDL CHOLESTEROL 156.5 MG/DL (<100); NON-HDL-C 178.5 MG/DL; POTASSIUM SERUM 4.2 MMOL/L (3.5-5.1); SODIUM LEVEL 142 MMOL/L (136-145); TOTAL PROTEIN 7.5 G/DL (5.7-8.2); TRIGLYCERIDES LEVEL 110 MG/DL (<150)
== END ==
LOC: M PLALAB 07:52
PROVIDERS: ATTEND Nurse Practitioner Family
DX: E03.9 Hypothyroidism, unspecified (principal); I10 Essential (primary) hypertension; E78.2 Mixed hyperlipidemia